=== PATIENT | female | born 1960 | race Caucasian/White ===

== ENCOUNTER 2018-08-30 11:33 | Observation (INO) | payer OTHER ==
--- NOTE | 2018-08-30 12:00 | RADIOLOGY REPORT (SQ) ---
EXAM DESCRIPTION: CT HEAD WITHOUT COMPLETED DATE/TIME: 08/30/2018 11:48 am REASON FOR STUDY: Head Injury COMPARISON: None. TECHNIQUE: Axial images acquired through the brain without intravenous contrast. Images reviewed wi th bone, brain and subdural windows. Additional sagittal and coronal reconstructions were generated. Images stored on PACS. All CT scanners at this facility use dose modulation, iterative reconstruction, and/or weight based d osing when appropriate to reduce radiation dose to as low as reasonably achievable (ALARA). [facility]: Dose Right [facility]: CareDose [facility]: Dose Right [facility]: Teradose 4D [facility]: Canara RADIATION DOSE: CT Rad equipment meets quality standard of care and radiation dose reduction techniq ues were employed. CTDIvol: 53.2 mGy. DLP: 1017 mGy-cm. mGy. LIMITATIONS: None. FINDINGS: VENTRICLES: Normal size and contour. CEREBRUM: No masses. No hemorrhage. No midline shift. No evidence for acute infarction. Normal gra y/white matter differentiation. No areas of low density in the white matter. CEREBELLUM: No masses. No hemorrhage. No alteration of density. No evidence for acute infarction. EXTRAAXIAL SPACES: No fluid collections. No masses. ORBITS AND GLOBE: No intra- or extraconal masses. Normal contour of globe without masses. CALVARIUM: No fracture. PARANASAL SINUSES: No fluid or mucosal thickening. SOFT TISSUES: No mass or hematoma. OTHER: No other significant finding. IMPRESSION: No acute intracranial pathology. EVIDENCE OF ACUTE STROKE: NO. COMMENT: Quality ID # [id number]: Final reports with documentation of one or more dose reduction techniques (e.g., Automated exposure control, adjustment of the mA and/or kV according to patient size, use of iterative reconstruction technique) TECHNICAL DOCUMENTATION: JOB ID: [id number] [employer]- All Rights Reserved Reading location - IP/workstation name: [email or web address]
[2018-08-30] MEDS ORDERED: LABETALOL HCL INJ 20 MG/4 ML DISP.SYRIN IV ONE (12:48)
[2018-08-30 12:54] LABS: ABSOLUTE LYMPHOCYTES (AUTO) 1.2 10^3/uL (0.5-4.7); ABSOLUTE MONOCYTES (AUTO) 0.3 10^3/uL (0.1-1.4); ABSOLUTE NEUT (AUTO) 7.6 10^3/uL (1.7-8.2); BASOPHILS % (AUTO) 0.5 % (0-2); EOSINOPHILS % (AUTO) 0.4 % (0-6); HEMATOCRIT 45.2 % (36.0-47.0); HEMOGLOBIN 15.8 g/dL (12.0-15.5); LYMPHOCYTES % (AUTO) 13.2 % (13-45); MEAN CORPUSCULAR HEMOGLOBIN 30.5 pg (27.0-33.4); MEAN CORPUSCULAR VOLUME 87 fl (80-97); MONOCYTES % (AUTO) 3.3 % (3-13); PLATELET COUNT 220 10^3/uL (150-450); RED BLOOD COUNT 5.18 10^6/uL (3.72-5.28); RED CELL DISTRIBUTION WIDTH 12.7 % (11.5-14.0); SEGMENTED NEUTROPHILS % (AUTO) 82.6 % (42-78); TOTAL CELLS COUNTED % (AUTO) 100 %; WHITE BLOOD COUNT 9.2 10^3/uL (4.0-10.5)
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
[2018-08-30 13:04] LABS: ALANINE AMINOTRANSFERASE 34 U/L (9-52); ALBUMIN 4.4 g/dL (3.5-5.0); ALKALINE PHOSPHATASE 121 U/L (38-126); ANION GAP 12 (5-19); ASPARTATE AMINO TRANSFERASE 25 U/L (14-36); BILIRUBIN,DIRECT 0.3 mg/dL (0.0-0.4); BILIRUBIN,TOTAL 0.8 mg/dL (0.2-1.3); BLOOD UREA NITROGEN 12 mg/dL (7-20); CALCIUM 9.6 mg/dL (8.4-10.2); CARBON DIOXIDE 26 mmol/L (22-30); CHLORIDE 96 mmol/L (98-107); CREATINE KINASE 24 U/L (30-135); GLUCOSE 361 mg/dL (75-110); POTASSIUM 4.3 mmol/L (3.6-5.0); SODIUM 134.1 mmol/L (137-145); TOTAL PROTEIN 7.3 g/dL (6.3-8.2)
[2018-08-30] MEDS ORDERED: METOPROLOL TARTRATE PF/INJ 5 MG/5 ML SDV IV ONE (13:07)
[2018-08-30 13:19] LABS: CREATINE KINASE MB 0.67 ng/mL (<4.55); TROPONIN I < 0.012 ng/mL
[2018-08-30] MEDS ORDERED: CLONIDINE HCL 0.2 MG TABLET PO ONE (14:29)
[2018-08-30] MEDS ORDERED: NORMAL SALINE 1000 ML 1,000 ML IV ONE (14:49)
[2018-08-30] MEDS ORDERED: ACETAMINOPHEN 325 MG TABLET PO PRN (15:14)
[2018-08-30] MEDS ORDERED: ONDANSETRON HCL INJ/PF 4 MG/2 ML SDV IV PRN (15:14)
[2018-08-30] MEDS ORDERED: HYDRALAZINE HCL INJ/PF 20 MG/1 ML SDV IV PRN (15:21)
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
--- NOTE | 2018-08-30 15:39 | RADIOLOGY REPORT (SQ) ---
EXAM DESCRIPTION: CHEST SINGLE VIEW COMPLETED DATE/TIME: 08/30/2018 3:31 pm REASON FOR STUDY: shortness of breath COMPARISON: None. EXAM PARAMETERS: NUMBER OF VIEWS: One view. TECHNIQUE: Single frontal radiographic view of the chest acquired. RADIATION DOSE: NA LIMITATIONS: None. FINDINGS: LUNGS AND PLEURA: No opacities, masses or pneumothorax. No pleural effusion. MEDIASTINUM AND HILAR STRUCTURES: No masses. Contour normal. HEART AND VASCULAR STRUCTURES: Heart normal in size. Normal vasculature. BONES: No acute findings. HARDWARE: None in the chest. OTHER: No other significant finding. IMPRESSION: NO ACUTE RADIOGRAPHIC FINDING IN THE CHEST. TECHNICAL DOCUMENTATION: JOB ID: [id number] [employer]- All Rights Reserved Reading location - IP/workstation name: [email or web address]
[2018-08-30] MEDS: ASPIRIN 81 MG TABLET, CHEWABLE PO SCH (16:38)
[2018-08-30] MEDS: LISINOPRIL 10 MG TABLET PO SCH (16:38)
[2018-08-30] MEDS ORDERED: DEXTROSE 50%-WATER SYRINGE 25 GM/50 ML DOSE IV PRN (17:30)
[2018-08-30] MEDS ORDERED: DEXTROSE 40% GEL 15 GM TUBE X 2 PO PRN (17:30)
[2018-08-30] MEDS ORDERED: DEXTROSE 40% GEL 15 GM TUBE PO PRN (17:30)
[2018-08-30] MEDS ORDERED: GLUCAGON,HUMAN RECOMB 1 MG INJ IM PRN (17:30)
[2018-08-30] MEDS ORDERED: DEXTROSE 50%-WATER SYRINGE 12.5 GM/25 ML DOSE IV PRN (17:30)
[2018-08-30 17:45] LABS: CREATINE KINASE MB 0.62 ng/mL (<4.55); TROPONIN I < 0.012 ng/mL
--- NOTE | 2018-08-30 18:00 | RADIOLOGY REPORT (SQ) ---
EXAM DESCRIPTION: MRI HEAD WITHOUT COMPLETED DATE/TIME: 08/30/2018 5:48 pm REASON FOR STUDY: cva COMPARISON: None. TECHNIQUE: Multiplanar imaging includes non-contrasted T1, T2, FLAIR, and diffusion with ADC map seq uences. Images stored on PACS. LIMITATIONS: None. FINDINGS: ANATOMY: No anomalies. Normal vascular flow voids. Pituitary fossa normal. CSF SPACES: Normal in size and contour. No hemorrhage. CEREBRUM: Sulci and gyri normal in size and contour. Normal white matter signal on FLAIR imaging. No evidence of hemorrhage, mass, or extraaxial fluid collection. POSTERIOR FOSSA: No signal alteration. No hemorrhage. No edema, masses or mass effect. Internal jennifer tory canals, cerebello-pontine angles, mastoids normal. DIFFUSION IMAGING: Negative for acute or sub-acute infarction. ORBITS: No masses. Globes normal. PARANASAL SINUSES: No fluid levels. Mucosa normal. OTHER: No other significant finding. IMPRESSION: NORMAL MRI OF THE BRAIN WITHOUT INTRAVENOUS GADOLINIUM CONTRAST. EVIDENCE OF ACUTE STROKE: NO. TECHNICAL DOCUMENTATION: JOB ID: [id number] [employer]- All Rights Reserved Reading location - IP/workstation name: [email or web address]
--- NOTE | 2018-08-30 19:54 | RADIOLOGY REPORT (SQ) ---
EXAM DESCRIPTION: CAROTID DOPPLER COMPLETED DATE/TIME: 08/30/2018 7:15 pm REASON FOR STUDY: cva COMPARISON: None. TECHNIQUE: Grayscale ultrasound, Doppler velocity and spectra, and color Doppler images acquired of the extra-cranial carotid and vertebral arteries. Images stored on PACS. LIMITATIONS: None. FINDINGS: RIGHT CAROTID CCA Velocities: Within normal limits. ICA Velocities Peak systolic 102 cm/s. End diastolic 31 cm/s. Proximal ICA/CCA peak systolic ratio 0.7. Spectra normal. No significant plaque. LEFT CAROTID CCA Velocities: Within normal limits. ICA Velocities Peak systolic 126 cm/s. End diastolic 24 cm/s. Proximal ICA/CCA peak systolic ratio 0.7. Spectra normal. No significant plaque. VERTEBRAL ARTERIES: Antegrade flow. Normal waveforms. SUBCLAVIAN ARTERIES: No finding. OTHER: No other significant finding. IMPRESSION: NO HEMODYNAMICALLY SIGNIFICANT STENOSIS. COMMENT: Quality ID #[id number]: Velocity criteria are extrapolated from the diameter data as defined by t bridger Society of Radiologists in Ultrasound Consensus Conference. Radiology 2003: 229; 340-346. TECHNICAL DOCUMENTATION: JOB ID: [id number] [place]-72 2010 [employer]- All Rights Reserved Reading location - IP/workstation name: [email or web address]
[2018-08-30] MEDS: CARVEDILOL 12.5 MG TABLET PO SCH (22:12)
[2018-08-30] MEDS: FAMOTIDINE 20 MG TABLET PO SCH (22:12)
[2018-08-30] MEDS: INSULIN LISPRO 100 UNIT/ML 3 ML VIAL SUBCUT SCH (22:14)
[2018-08-30 23:09] LABS: CREATINE KINASE MB 0.43 ng/mL (<4.55)
[2018-08-30 23:11] LABS: TROPONIN I < 0.012 ng/mL
[2018-08-31 04:49] LABS: ABSOLUTE BASOPHILS # (AUTO) 0.1 10^3/uL (0.0-0.2); ABSOLUTE EOSINOPHILS # (AUTO) 0.1 10^3/uL (0.0-0.6); ABSOLUTE MONOCYTES (AUTO) 0.7 10^3/uL (0.1-1.4); ABSOLUTE NEUT (AUTO) 5.7 10^3/uL (1.7-8.2); BASOPHILS % (AUTO) 0.7 % (0-2); EOSINOPHILS % (AUTO) 1.4 % (0-6); HEMATOCRIT 41.3 % (36.0-47.0); HEMOGLOBIN 14.1 g/dL (12.0-15.5); LYMPHOCYTES % (AUTO) 23.5 % (13-45); MEAN CORPUSCULAR HEMOGLOBIN 29.8 pg (27.0-33.4); MEAN CORPUSCULAR HGB CONC 34.1 g/dL (32.0-36.0); MEAN CORPUSCULAR VOLUME 87 fl (80-97); MONOCYTES % (AUTO) 7.8 % (3-13); PLATELET COUNT 227 10^3/uL (150-450); RED BLOOD COUNT 4.72 10^6/uL (3.72-5.28); RED CELL DISTRIBUTION WIDTH 12.9 % (11.5-14.0); SEGMENTED NEUTROPHILS % (AUTO) 66.6 % (42-78); TOTAL CELLS COUNTED % (AUTO) 100 %; WHITE BLOOD COUNT 8.6 10^3/uL (4.0-10.5)
[2018-08-31 04:56] LABS: INTERNATIONAL RATION (INR) 1.06; PROTHROMBIN TIME 13.8 SEC (11.4-15.4)
[2018-08-31 05:12] LABS: ALANINE AMINOTRANSFERASE 28 U/L (9-52); ALBUMIN 3.3 g/dL (3.5-5.0); ALKALINE PHOSPHATASE 87 U/L (38-126); ANION GAP 8 (5-19); ASPARTATE AMINO TRANSFERASE 17 U/L (14-36); BILIRUBIN,DIRECT 0.2 mg/dL (0.0-0.4); BILIRUBIN,TOTAL 0.6 mg/dL (0.2-1.3); BLOOD UREA NITROGEN 21 mg/dL (7-20); CALCIUM 9.1 mg/dL (8.4-10.2); CARBON DIOXIDE 28 mmol/L (22-30); CHLORIDE 100 mmol/L (98-107); CHOLESTEROL 214.99 mg/dL (0-200); GLUCOSE 280 mg/dL (75-110); POTASSIUM 3.7 mmol/L (3.6-5.0); SODIUM 135.8 mmol/L (137-145); TOTAL PROTEIN 5.9 g/dL (6.3-8.2); TRIGLYCERIDES 206 mg/dL (<150)
[2018-08-31 05:22] LABS: DIRECT LDL 129 mg/dL (<100)
[2018-08-31 05:24] LABS: CREATINE KINASE MB 0.38 ng/mL (<4.55)
[2018-08-31 05:26] LABS: TROPONIN I < 0.012 ng/mL; VLDL CHOLESTEROL 41.2 mg/dL (10-31)
[2018-08-31] MEDS: INSULIN LISPRO 100 UNIT/ML 3 ML VIAL SUBCUT SCH ×4 (08:39→22:10)
[2018-08-31] MEDS ORDERED: SIMVASTATIN 40 MG TABLET PO SCH ×2 (10:00→22:00)
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
[2018-08-31] MEDS: FAMOTIDINE 20 MG TABLET PO SCH ×2 (10:55→22:09)
[2018-08-31] MEDS: ASPIRIN 81 MG TABLET, CHEWABLE PO SCH (10:55)
[2018-08-31] MEDS: ENOXAPARIN SODIUM INJ 40 MG/0.4 ML DISP.SYRIN SUBCUT SCH (10:55)
[2018-08-31] MEDS: LISINOPRIL 10 MG TABLET PO SCH (10:55)
[2018-08-31] MEDS: CARVEDILOL 12.5 MG TABLET PO SCH ×2 (10:55→22:09)
[2018-08-31] MEDS: INSULIN GLARGINE,HUM.REC.ANLOG 1,000 UNIT/10 ML VIAL SUBCUT SCH ×2 (12:12→22:22)
--- NOTE | 2018-09-01 00:06 | EKG REPORT ---
SEVERITY:- ABNORMAL ECG - SINUS TACHYCARDIA LEFT AXIS DEVIATION PROBABLE LEFT VENTRICULAR HYPERTROPHY ANTERIOR Q WAVES, POSSIBLY DUE TO LVH : Confirmed by: Kinga Levin 01-Sep-2018 00:05:44
[2018-09-01] MEDS: INSULIN LISPRO 100 UNIT/ML 3 ML VIAL SUBCUT SCH ×2 (07:43→11:59)
[2018-09-01] MEDS ORDERED: INSULIN GLARGINE,HUM.REC.ANLOG 1,000 UNIT/10 ML VIAL SUBCUT SCH (10:00)
[2018-09-01] MEDS: FAMOTIDINE 20 MG TABLET PO SCH (10:10)
[2018-09-01] MEDS: CARVEDILOL 12.5 MG TABLET PO SCH (10:12)
[2018-09-01] MEDS: LISINOPRIL 10 MG TABLET PO SCH (10:12)
[2018-09-01] MEDS: ASPIRIN 81 MG TABLET, CHEWABLE PO SCH (10:12)
[2018-09-01] MEDS: ENOXAPARIN SODIUM INJ 40 MG/0.4 ML DISP.SYRIN SUBCUT SCH (10:12)
--- NOTE | 2018-09-01 10:58 | PDOC DISCHARGE SUMMARY ---
General - Admit/Disc Date/PCP Admission Date/Primary Care Provider: 08/30/18 15:15 Discharge Date: 09/01/18 - Discharge Diagnosis (1) TIA (transient ischemic attack) Is this a current diagnosis for this admission?: Yes Summary: 08/30/[id number]-uisk-old female is going to be admitted for observation for TIA. Requested neurochecks every 4 hours for the next 24 hours. Carotid Doppler was requested MRI of the brain without contrast was requested started on aspirin, atorvastatin and Lovenox. To check the lipid panel in the morning. Aspiration fall seizure precautions are requested stroke core measures are implemented. 08/31/2018-this elderly female admitted for TIA CT head was negative MRI is negative. carotid Doppler negative for stenosis. 09/01/2018-MRI of the head was negative carotid Doppler was negative. CT head was negative. TIA symptoms are resolved. (2) Hypertension Is this a current diagnosis for this admission?: Yes Summary: 08/30/2018-patient came in with hypertensive urgency. Initial blood pressure was 216/120 patient was received IV Lopressor in the emergency room blood pressure improved to 180/109. Heart rate is also in the 140s at the time of admission and improved to 110 with IV Lopressor. She I started on Coreg 12.5 mg p.o. twice daily and lisinopril 20 mg p.o. daily. Hydralazine 10 mg IV every 6 PRN for systolic blood pressure more than 150 was requested. She was placed on low- sodium diet. 08/31 2018-blood pressure today is 123/69 stable. Presently on hydralazine 10 mg IV every 6 as needed and Coreg 12.5 mg p.o. twice daily and lisinopril 20 mg p.o. daily. X 32,019-patient blood pressure today is 111/53. Stable. Given prescription for Coreg 12.5 mg p.o. twice daily and lisinopril 20 mg p.o. daily. Low-sodium diet low-carb diet was recommended patient was strongly advised to follow-up with primary care physician in 1 week time. (3) Obesity (BMI 30.0-34.9) Is this a current diagnosis for this admission?: No (4) New onset type 2 diabetes mellitus Is this a current diagnosis for this admission?: Yes Summary: 08/31/2018-patient's hemoglobin A1c came back 13 blood sugar this morning is 360 started on Lantus 10 units twice a day and plan to continue insulin sliding scale before meals and at bedtime. Dietary consult was requested. 09/01/2018-hemoglobin A1c is 13 she was started on her Lantus 20 units twice a day and also advised to the blood sugars at home and insulin syringes under diabetic supplies are provided. - Additional Information Resuscitation Status: Full Code Discharge Diet: Diabetic Discharge Activity: Activity As Tolerated Prescriptions: Aspirin [Aspirin 81 mg Chewable Tablet] 81 mg PO DAILY #30 tab.chew Carvedilol [Coreg 12.5 mg Tablet] 12.5 mg PO Q12 #60 tablet Insulin Glargine,Hum.rec.anlog [Lantus Insulin 100 Unit/1 ml 10 ml] 20 unit SUBCUT BID 3 Days vial Lisinopril [Prinivil 10 mg Tablet] 20 mg PO DAILY #30 tablet Simvastatin [Zocor 40 mg Tablet] 40 mg PO QHS #30 tablet Home Medications: Aspirin [Aspirin 81 mg Chewable Tablet] 81 mg PO DAILY #30 tab.chew 09/01/18 Carvedilol [Coreg 12.5 mg Tablet] 12.5 mg PO Q12 #60 tablet 09/01/18 Insulin Glargine,Hum.rec.anlog [Lantus Insulin 100 Unit/1 ml 10 ml] 20 unit SUBCUT BID 3 Days vial 09/01/18 Lisinopril [Prinivil 10 mg Tablet] 20 mg PO DAILY #30 tablet 09/01/18 Simvastatin [Zocor 40 mg Tablet] 40 mg PO QHS #30 tablet 09/01/18 History of Present Illness History of Present Illness: SHAQUILLE ARANA is a 58 year old female with history of hypertension not on medications brought to the emergency room by friends after noticing altered mental status. According to the patient bookcases fell on her face 1 week ago she was fine after that today while she was spending time with friends 1 of the friends noticed change in mental status she is not communicating well and c lenched her right fist and pointed towards the chest and unable to respond properly as if she has a stroke they decided to bring her to the hospital for further evaluation as per the friends it lasted for 12 minutes. No previous history. In the emergency room found to have a blood pressure of systolic more than 210 100 diastolic of more than 110 she was given Lopressor because the heart rate is around 140 sinus tachycardia repeat blood pressure came down to 180/109 with heart rate is around 110 cardiac enzymes are negative CT head was negative lab work is okay and medical consult was called for admission. Hospital Course Hospital Course: 58-year-old female admitted with TIA symptoms of stroke was ruled out. Found to have a new onset diabetes mellitus started on Lantus 20 units twice a day. And patient was given a prescription for glucometer machine alcohol pads lancets insulin syringes. Diabetic diet was recommended dietary consult was recommended during the hospital stay. Patient is also found to have hypertensive urgency at the time of admission given prescription for blood pressure medications blood pressure today is stable. Physical Exam Vital Signs: Temp Pulse Resp BP Pulse Ox 98.7 F 87 16 137/79 H 100 09/01/18 07:24 09/01/18 07:24 09/01/18 07:24 09/01/18 07:24 09/01/18 07:24 Intake & Output 08/31/18 09/01/18 09/02/18 06:59 06:59 06:59 Intake Total 1700 954 Output Total 0 Balance 1700 954 Weight 84.2 kg 84.1 kg General appearance: PRESENT: no acute distress Head exam: PRESENT: atraumatic Eye exam: PRESENT: PERRLA Mouth exam: PRESENT: dry mucosa Teeth exam: PRESENT: poor dentation Neck exam: ABSENT: carotid bruit, JVD, lymphadenopathy, thyromegaly Respiratory exam: PRESENT: clear to auscultation marshall. ABSENT: rales, rhonchi, wheezes Cardiovascular exam: PRESENT: RRR. ABSENT: diastolic murmur, rubs, systolic murmur GI/Abdominal exam: PRESENT: normal bowel sounds, soft. ABSENT: distended, guarding, mass, organolmegaly, rebound, tenderness Rectal exam: PRESENT: deferred Extremities exam: PRESENT: full ROM. ABSENT: calf tenderness, clubbing, pedal edema Neurological exam: PRESENT: alert, awake, oriented to person, oriented to place, oriented to time, oriented to situation, CN II-XII grossly intact. ABSENT: motor sensory deficit Psychiatric exam: PRESENT: appropriate affect, normal mood. ABSENT: homicidal ideation, suicidal ideation Results Laboratory Results: 08/31/18 04:38 08/31/18 04:38 0608/30/18 08/30/18 12:30 12:30 16:30 Creatine Kinase 24 L 20 L CK-MB (CK-2) 0.67 Troponin I < 0.012 08/30/18 08/30/18 08/30/18 16:30 22:17 22:17 Creatine Kinase 21 L CK-MB (CK-2) 0.62 0.43 Troponin I < 0.012 < 0.012 08/31/18 08/31/18 04:38 04:38 Creatine Kinase 20 L CK-MB (CK-2) 0.38 Troponin I < 0.012 Impressions: Carotid Doppler Study 08/30/18 00:00 IMPRESSION: NO HEMODYNAMICALLY SIGNIFICANT STENOSIS. Head CT 08/30/18 00:00 IMPRESSION: No acute intracranial pathology. EVIDENCE OF ACUTE STROKE: NO. Head MRI 08/30/18 00:00 IMPRESSION: NORMAL MRI OF THE BRAIN WITHOUT INTRAVENOUS GADOLINIUM CONTRAST. EVIDENCE OF ACUTE STROKE: NO. Chest X-Ray 08/30/18 15:17 IMPRESSION: NO ACUTE RADIOGRAPHIC FINDING IN THE CHEST. Qualifiers - * PATIENT BEING DISCHARGED WITH ANY OF THE FOLLOWING DIAGNOSIS: No VTE patient discharged on overlapping Therapy?: No Acute Heart Failure - Is this a Heart Failure Patient?: No
[2018-09-01 13:04] VITALS: BP 168/99
== END 2018-09-01 13:48 | disposition home or self-care (01) ==
LOC: ER 11:33 → EH 15:15 → UNDOADMOB 15:34 → EH 16:16 → 4W 16:16 → 3S 08-31 07:57 → 3W 08-31 18:17
PROVIDERS: ADMIT Internal Medicine; ATTEND Internal Medicine
DX: G45.9 Transient cerebral ischemic attack, unspecified (principal); I16.0 Hypertensive urgency; I10 Essential (primary) hypertension; E11.9 Type 2 diabetes mellitus without complications; E66.9 Obesity, unspecified; Z68.30 Body mass index [BMI] 30.0-30.9, adult
CPT/HCPCS: 93005; 36415 ×2; 82553 ×2; 82962 ×3; 82550 ×2; 83735; 84443; 85025 ×2; 85610; 80053 ×2; 84484 ×2; 83036; 80061; 93880; 70551; 71045; 70450; 93010; J1815 ×5; J3490 ×3; J1650; J7030; G0378